=== PATIENT | female | born 1955 | race Caucasian/White ===

== ENCOUNTER → 2022-08-02 | Outpatient (CLI) | payer MEDICARE ==
--- NOTE | 2022-08-02 12:20 | CT ---
EXAMINATION TYPE: CT right knee - [facility] Protocol DATE OF EXAM: 08/02/2022 COMPARISON: None HISTORY: Presurgical planning- Right knee [facility] CT DLP: 835 mGycm TECHNIQUE- CT of the right knee was performed. FINDINGS- Limited preprocedural planning imaging was performed. There is concentric narrowing of the hip joint with hypertrophic change of the acetabulum. Findings c ompatible with arthropathy. Correlate for femoral acetabular impingement. Spurring along the greater trochanter can occasionally be associated with trochanteric bursitis. There is hypertrophic change of the patella and the medial and lateral compartment of the knee joint with severe narrowing of the joint spaces. No erosive changes. Cystic changes seen involving the medi al distal femur likely in the basis of geode. Spurring along the intercondylar notch noted. Ankle mortise appears preserved. Spurring anteriorly of the distal tibia noted and there are calcanea l spurs. IMPRESSION- 1.. Severe osteoarthritis of the right knee. 2. Arthropathy of the hip correlate for femoral acetabular impingement.
== END | disposition home or self-care (01) ==
LOC: RADCTMAIN 10:42
PROVIDERS: ATTEND Orthopaedic Surgery
DX: M17.11 Unilateral primary osteoarthritis, right knee (principal); M17.12 Unilateral primary osteoarthritis, left knee; E11.9 Type 2 diabetes mellitus without complications; Z68.42 Body mass index [BMI] 45.0-49.9, adult

== ENCOUNTER → 2024-07-17 | Outpatient (CLI) | payer MEDICARE ==
--- NOTE | 2024-07-17 15:20 | CT ---
CT left knee, [facility] protocol. HISTORY: Knee pain COMPARISON: None TECHNIQUE: Multiple axial images are obtained through the lower extremities without use of IV contras t material. The exam was performed according to the [facility] protocol FINDINGS: There is severe narrowing, marked hypertrophic spurring and mild subchondral sclerosis in the medial compartment knee consistent with moderate osteoarthritis. There is mild narrowing of the lateral comp artment of the knee with moderate hypertrophic spurring at the margins. There is moderate narrowing a nd hypertrophic spurring of the patellofemoral compartment. There is no acute fracture, dislocation or focal intraosseous abnormality. The hips are normal and symmetric bilaterally without fracture, dislocation or arthritic change. The ankles are normal and symmetrical without osteoarthritic change, fracture, dislocation or focal i ntraosseous abnormality. IMPRESSION: 1. Tricompartment osteoarthritis, severe in the medial compartment, mild in the lateral compartment a nd moderate patellofemoral compartment. 2. No significant arthritis in the hips or ankles bilaterally. 3. Total right knee replacement 4. no acute trauma. [facility], , 07/17/2024 3:18 PM
== END | disposition home or self-care (01) ==
LOC: RADCTMAIN 12:49
PROVIDERS: ATTEND Orthopaedic Surgery
DX: M17.12 Unilateral primary osteoarthritis, left knee (principal); E11.9 Type 2 diabetes mellitus without complications; Z68.41 Body mass index [BMI] 40.0-44.9, adult; Z96.651 Presence of right artificial knee joint

== ENCOUNTER 2024-08-23 10:23 | Day surgery (SDC) | payer MEDICARE ==
[~2024-08-23 10:23] MED LIST: FAMOTIDINE 20 MG/2 ML VIAL IVP PRN; TRANEXAMIC 1,000 MG/100ML-NACL 1,000 MG in SALINE 1 100ML.BAG IV PRN; TRANEXAMIC 1,000 MG/100ML-NACL 1,000 MG in SALINE 1 100ML.BAG IVPB PRN
[2024-08-23] MEDS: IV FLUID CONTINUATION 1,000 ML IV ONE ×2 (10:47→15:49)
[2024-08-23] MEDS: DOCUSATE 100 MG CAP PO PRN (11:16)
[2024-08-23] MEDS: oxyCODONE ER 10 MG TAB.ER.12H PO PRN (11:17)
[2024-08-23] MEDS: DEXAMETHASONE SOD PHOSPHATE 10 MG/ML 1 ML VIAL IV PRN (11:17)
[2024-08-23] MEDS: KETOROLAC 15 MG/ML 1 ML VIAL IVP PRN (11:17)
[2024-08-23] MEDS: ACETAMINOPHEN TAB 500 MG TAB PO PRN (11:17)
[2024-08-23] MEDS: ONDANSETRON 4 MG/2 ML VIAL IVP PRN (11:17)
[2024-08-23] MEDS: LACTATED RINGERS 1,000 ML IV SCH (11:18)
[2024-08-23 11:25] LABS: Glucose,Whole Blood 221 mg/dL (70-110)
[2024-08-23] MEDS: MIDAZOLAM 2 MG/2 ML VIAL IV ONE (11:38)
--- NOTE | 2024-08-23 11:57 | P.ANPRN ---
Procedure Note - Anesthesia - Nerve Block Performed Left Malcolmck Single Time Out Performed: Yes Date of Procedure: 08/23/24 Procedure Start Time: 11:38 Procedure Stop Time: 11:43 Location of Patient: PreOp Indication: Acute Post-Operative Pain, Analgesia, Requested by Surgeon Sedation Type: Sedate with meaningful contact maintained Preparation: Sterile Prep Position: Right Lateral Catheter: None Needle Types: Pajunk Needle Gauge: 21 Ultrasound used to visualize needle placement: Yes Ultrasound used to observe medication spread: Yes Injectate: 0.5% Ropivacaine (see comment for volume) (Ropiv 20ml+[id number]) Blood Aspirated: No Pain Paresthesia on Injection Noted: No Resistance on Injection: Normal Image Stored and Saved: Yes Events: Uneventful and Well Tolerated
--- NOTE | 2024-08-23 11:58 | P.ANPRN ---
Procedure Note - Anesthesia - Nerve Block Performed Left Adductor Canal Single Time Out Performed: Yes Date of Procedure: 08/23/24 Procedure Start Time: 11:43 Procedure Stop Time: 11:48 Location of Patient: PreOp Indication: Acute Post-Operative Pain, Analgesia, Requested by Surgeon Sedation Type: Sedate with meaningful contact maintained Preparation: Sterile Prep Position: Supine Catheter: None Needle Types: Pajunk Needle Gauge: 21 Ultrasound used to visualize needle placement: Yes Ultrasound used to observe medication spread: Yes Injectate: 0.5% Ropivacaine (see comment for volume) (Ropiv 20ml+Decadron 4mg (Resident)) Blood Aspirated: No Pain Paresthesia on Injection Noted: No Resistance on Injection: Normal Image Stored and Saved: Yes Events: Uneventful and Well Tolerated
[2024-08-23] MEDS ORDERED: SUCCINYLCHOLINE CHLORIDE 200 MG/10 ML VIAL IV ONE (12:33)
[2024-08-23] MEDS ORDERED: TRANEXAMIC 1,000 MG/100ML-NACL PREMIX BAG ONE (12:33)
[2024-08-23] MEDS ORDERED: LIDOCAINE 1% INJ 10MG/ML (20 ML MDV) ONE (12:33)
[2024-08-23] MEDS ORDERED: NEOSTIGMINE 1 MG/ML 10 ML VIAL ONE (12:33)
[2024-08-23] MEDS ORDERED: PHENYLEPHRINE-0.9% NACL SYG 1,000 MCG/10 ML SYRINGE ONE (12:33)
[2024-08-23] MEDS ORDERED: ROPIVACAINE 5 MG/ML 30 ML VIAL ONE (12:33)
[2024-08-23] MEDS ORDERED: PROPOFOL 10 MG/ML 20 ML VIAL IV ONE (12:33)
[2024-08-23] MEDS ORDERED: ROCURONIUM 10 MG/ML (5 ML VIAL) IV ONE (12:33)
[2024-08-23] MEDS ORDERED: HYDROmorphone (PF) 1 MG/ML ONE (12:33)
[2024-08-23] MEDS ORDERED: GLYCOPYRROLATE 0.2 MG/ML 2 ML VIAL ONE (12:33)
[2024-08-23] MEDS ORDERED: MIDAZOLAM 2 MG/2 ML VIAL ONE (12:33)
[2024-08-23] MEDS ORDERED: DEXAMETHASONE SOD PHOSPHATE 4 MG/ML 1 ML VIAL ONE (12:33)
[2024-08-23] MEDS ORDERED: fentaNYL (PF) 50 MCG/ML 2 ML AMP ONE (12:33)
[2024-08-23] MEDS: ROPIVACAINE/EPI/CLONIDINE/KET 50 ML SYRINGE MISCELLANE PRN (13:00)
[2024-08-23] MEDS: LACTATED RINGERS 1,000 ML IV ONE (13:42)
--- NOTE | 2024-08-23 14:33 | P.OP ---
Date of Procedure: 08/23/24 Preoperative Diagnosis: 1. Severe left knee osteoarthritis 2. BMI 44.9 Postoperative Diagnosis: Same Procedure(s) Performed: 1. Left total knee arthroplasty 2. Computer assisted musculoskeletal navigation using CT/MRI images 3. Application of negative pressure incisional wound VAC, less than 50 cm left knee, incision 15 cm Implants: 1. [place] [employer] CR Femur Size #2 2. [employer] [employer] [place] Tibial Base Size #2 3. [place] [employer] CS poly Size #2, 10-mm 4. Bin Triathlon all poly patella, Size #29 Anesthesia: ZOHRAA, regional Surgeon: Rafat Mac Sand Technician #1: Jacob Valdes Estimated Blood Loss (ml): 200 IV fluids (ml): 800 Pathology: none sent Condition: stable Disposition: PACU Indications for Procedure: I met with the patient preoperatively in the office setting and discussed treatment of their symptomatic knee arthritis. They failed a long course of nonsurgical treatment and elected to proceed with an elective total knee replacement. I discussed the potential risks and complications at length and gave them ample time to ask questions. Risks discussed included: risks from anesthesia, superficial site surgical infection, acute and/or chronic periprosthetic joint infection, delayed wound healing, drainage, wound necrosis, instability, stiffness, stiffness requiring manipulation and/or revision surgery, damage to local blood vessels or nerves, aseptic loosening of the implants, extensor mechanism issues including disruption, patellar maltracking, avascular necrosis etc., continued or worsened knee pain, generalized dissatisfaction with surgical outcome, need for revision surgery, an inability to regain preinjury level of function, DVT, PE, other medical complications, and possibly loss of life or limb. The patient voiced their understanding that while these are the most common complications other less common complications are possible. They provided both their verbal and written consent to go forward with surgery. Description of Procedure: The patient was identified in preoperative holding and the correct operative extremity was verified and marked with a marker. I reviewed the consent form with the patient at length. All of their questions were answered. The patient was given a block by anesthesia. They were then brought back to the operating room. They were transferred onto the operating room table where a general anesthetic, preoperative antibiotics, and tranexamic acid were administered by anesthesia. A tourniquet was applied to the proximal aspect of the operative extremity. The contralateral extremity was padded under the heel and secured to the operating room table with a nonsterile blue towel and tape. The ipsilateral arm was carefully draped across the patient's chest and secured with a pillow and foam. A post was applied over the lateral aspect of the ipsilateral thigh and a bolster was placed under the ipsilateral foot. I verified that the operative extremity was stable and the knee was flexed to 90. The operative extremity was then placed in a leg andrea, nonsterile drapes were applied, and the extremity was prepped and draped sterilely in the standard sterile fashion. Prior to starting surgery timeout was performed identifying the correct patient, operative extremity, and procedure. The leg was then elevated, exsanguinated with an Esmarch bandage, and the tourniquet was inflated. An anterior midline incision was made sharply with a scalpel. Once I had dissected deep to the superficial fascial layer medial and lateral flaps were elevated. A medial parapatellar arthrotomy was created. Upon opening the knee joint there were diffuse arthritic changes in all 3 compartments. The anterior horn of the medial meniscus were sharply released and a medial release was performed around the posterior medial corner of the knee to facilitate retractor placement. The fat pad was excised with electrocautery. The patella was found to be severely arthritic and a provisional cut was made with a sagittal saw to facilitate mobilization of the extensor mechanism during the procedure. Remnants of the ACL and PCL were then excised from the notch. 4 mm pins were then placed within the incision in the medial distal femur and proximal tibia. Arrays were applied to the pins and I verified they were completely tightened. The knee was then registered with the [employer] robot and manipulations in implant position were made to balance the knee and opitmize implant position. Using the [employer] robotic saw all cuts were made in accordance with our plan. After all bony fragments had been removed the cuts were verified with the planar probe. The tibia was then subluxed forward and sized. The knee was brought into flexion and a lamina marine safety officer was placed to allow removal of the meniscal remnants both medially and laterally as well as posterior osteophytes. Local anesthetic was then infiltrated around the joint capsule. Trial implants were then placed within the knee. Range of motion and collateral ligament tension was then evaluated. Adjustments in implant size and position were then made accordingly. Once the knee was felt to be appropriately balanced the Harley pins were removed. The patella was then recut, sized, and punched. A trial patellar button was then placed. With the trial components in place, the patella tracked midline. The femur was then drilled and the trial component removed. The trial tibial component was then appropriately rotated, pinned, and prepared for the keel. All trial components were then removed from the knee. The knee was thoroughly irrigated with pulsatile lavage. Cement was prepared via vacuum mixing in a bowl on the back table. I then hand pressurized cement into the femur and tibia and placed the implants beginning with the tibial base tray and poly liner, femoral component, and finally the patellar button. All extruded cement was removed including from the pin sites. Once the cement had hardened the knee was evaluated one final time with the final polyethylene liner in place. The knee had full extension and flexion and felt stable to varus and valgus stress throughout the arc of motion. The tourniquet was released and with the tourniquet down the patella tracked midline. All bleeders were controlled with electrocautery. The knee was then soaked for 3 minutes with a dilute Betadine soak. The knee was thoroughly irrigated using 3 L of sterile saline and pulsatile lavage. A deep drain was placed. The extensor mechanism was then reapproximated using pop off Vicryl sutures followed by a running barbed suture. The knee was then closed in layers with a 0 strata fix for the deep fascial layer, 2-0 strata fix for the superficial subcutaneous layer and Monocryl for the skin. Due to the patient's body habitus and incisional wound VAC was placed over the closed incision. I verified that all instrument, sponge, and sharp counts were correct. The patient was then transferred off the operating room table, extubated, and brought to recovery having tolerated the procedure well. Jacob Valdes PA-C was required as a skilled assistant designer due to the complexity of surgery for patient positioning, draping, exposure, retraction, closure of wound and application of dressing. PLAN: The patient can weight-bear as tolerated on the operative extremity. DVT prophylaxis with aspirin 81 mg twice a day based on preoperative risk stratification. Follow-up in the office in 2 weeks for wound check and x-rays of the knee including an AP and lateral.
[2024-08-23] MEDS ORDERED: NALOXONE 0.4 MG/ML 1 ML VIAL IV PRN (14:35)
[2024-08-23] MEDS ORDERED: diazePAM 5 MG TAB PO PRN (14:35)
[2024-08-23] MEDS ORDERED: HYDROmorphone 0.5 MG/0.5 ML SYRINGE IVP PRN ×3 (14:35)
[2024-08-23] MEDS ORDERED: TEMAZEPAM 15 MG CAP PO PRN (14:35)
[2024-08-23] MEDS ORDERED: ONDANSETRON 4 MG/2 ML VIAL IVP PRN (14:35)
[2024-08-23] MEDS ORDERED: NA PHOS,M-B/NA PHOS,DI-BA 133 ML ENEMA RECTAL PRN (14:35)
[2024-08-23] MEDS ORDERED: MAGNESIUM HYDROXIDE 2,400 MG/30 ML CUP PO PRN (14:35)
[2024-08-23] MEDS ORDERED: HYDROcodone/APAP 5-325MG 1 EACH TAB PO PRN (14:35)
[2024-08-23] MEDS ORDERED: bisacodyL 10 MG SUPP RECTAL PRN (14:35)
[2024-08-23] MEDS ORDERED: hydrOXYzine pamoate 25 MG CAP PO PRN (14:35)
[2024-08-23 15:17] LABS: Glucose,Whole Blood 242 mg/dL (70-110)
[2024-08-23] MEDS: INSULIN LISPRO (HumaLOG) 100 UNIT/ML 10 mL VL SQ ONE ×2 (15:30→16:49)
--- NOTE | 2024-08-23 15:36 | XR ---
EXAMINATION TYPE: XR knee limited LT DATE OF EXAM: 08/23/2024 3:33 PM INDICATION: Patient age:Female; 68 years old; Reason for study: Evaluation for Postop abnormality and alignment; H. COMPARISON: CT left knee 07/17/2024 TECHNIQUE: The Left knee(s) was examined in frontal and lateral projections. FINDINGS: Status post total knee arthroplasty changes with hardware in appropriate alignment and in tact. No evidence of fracture. Subcutaneous lucencies and lucencies within the joint consistent with surgical changes. IMPRESSION: Status post total knee arthroplasty changes with hardware intact and appropriate alignment. No fractu res identified. [facility], , 08/23/2024 3:34 PM
[2024-08-23 16:54] LABS: Glucose,Whole Blood 270 mg/dL (70-110)
[2024-08-23] MEDS ORDERED: PANTOPRAZOLE 40 MG TABLET PO PRN (17:03)
[2024-08-23] MEDS ORDERED: DEXTROSE 50% SYRINGE 50 ML IVP PRN ×4 (17:04→17:29)
[2024-08-23] MEDS: SODIUM CHLORIDE 0.9% 1,000 ML IV SCH (17:05)
[2024-08-23] MEDS: INSULIN LISPRO (HumaLOG) 100 UNIT/ML 10 mL VL SQ SCH (17:53)
--- NOTE | 2024-08-23 19:04 | P.CONS ---
History of Present Illness - Reason for Consult Consult date: 08/23/24 Medical Management Requesting physician: Rafat Mac - History of Present Illness History of Presenting Illness: Patient is a pleasant 67-year-old female with a past medical history of hypertension, hyperlipidemia, nae-[id number]-kvpscansd type 2 diabetes mellitus, and osteoarthritis. She is currently admitted under orthopedic surgery team status post left total knee arthroplasty with application of negative pressure incisional wound VAC. Surgical procedure was completed by Dr. Mac. We were consulted for medical management throughout hospitalization. Patient seen and fully evaluated in room 465 shortly after returning from surgery. At this time patient was sitting up in the chair and reports doing great. Patient has been ambulatory to restroom with assistance from nursing staff and use of walker without difficulties. She reports urinating without any difficulties. She denies having any postoperative nausea or vomiting and tolerating oral intake. Patient denies any dizziness, lightheadedness, chest pain, palpitations, shortness of breath, or any other complaints at this time. She reports her postoperative pain is well-managed. Review of systems: Pertinent positives and negatives as discussed in HPI, a complete review of systems was performed and all other systems are negative. Physical exam: Vital signs reviewed and stable. General: Nontoxic, no distress and appears stated age. Derm: Skin warm and dry, normal coloration for ethnicity. Head: Atraumatic, normocephalic and symmetric. Eyes: EOM's intact, no lid lag, and anicteric sclera Mouth: no lip lesions, mucus membranes moist Cardiovascular: regular rate and rhythm with normal S1S2, no murmur, positive posterior tibial pulses bilaterally, and cap refill < 2 seconds. Lungs: Respirations even, regular, and unlabored on room air. Lungs CTA bilaterally, no rhonchi, no rales, no wheezing, and no accessory muscle usage. Abdominal: soft, nontender to palpation, no guarding, no appreciable organomegaly Ext:. Movement and sensation intact. No gross muscle atrophy, no edema, no contractures wound VAC in place left knee. Neuro: Speech clear, face symmetrical and CN II-XII grossly intact with no noted focal neuro deficits Psych: Alert and oriented to person, place, time, and situation. Appropriate and pleasant affect. Assessment and Plan of Care: Status post left total knee arthroplasty with application of negative pressure incisional wound VAC -Management per primary admitting orthopedic surgery team including DVT prophylaxis, pain management, wound/dressing/wound VAC management, weightbearing, and PT/OT. -Patient currently on DVT prophylaxis with aspirin 81 mg twice daily. Type 2 twx-hrfnqej-ncgfhfryx diabetes mellitus with hyperglycemia -Hold metformin and Ozempic and placed patient on glycemic protocol with NovoLog sliding scale to maintain tight glycemic control throughout hospitalization. Blood glucose currently 270. Hyperlipidemia -Continue rosuvastatin 5 mg nightly. Data and imaging reviewed: -Blood glucose currently 270, has been trending in the 200s since arrival to our facility resulting at 221, 242, and 270. Patient placed on glycemic protocol with NovoLog sliding scale. -Vital signs reviewed. Blood pressure 145/74, heart rate 104, respiratory rate 16, temp 98.3 F, and SpO2 of 94% on room air. Thank you for allowing us to participate in the care of this pleasant patient. Do not hesitate to contact us with questions. Someone can be reached from the [facility] all hours of the day at [phone] or via [employer]. Patient was seen independently by Nurse Practitioner. This document was prepared using [employer] dictation software. Please allow for errors in bottle machine operator while rare they do occur. Kulwant Mon NP rendered care for this patient independently, reviewed the findings and plan as documented in the note above and agree with plan. I did not physically speak with or examine the patient on this date. Past Medical History Past Medical History: Diabetes Mellitus, Hypertension, Osteoarthritis (OA) Additional Past Medical History / Comment(s): hx. heart murmur, urinary frequency, occasional incontinence, kidney stones, no longer needs BP med., after last knee replacement surg. ended up w/red rash all over 3-4 days after got home that eventually peeled, unsure of cause History of Any Multi-Drug Resistant Organisms: None Reported Past Surgical History: Bariatric Surgery, Cholecystectomy, Joint Replacement, Tubal Ligation Additional Past Surgical History / Comment(s): cyst removed from ovary, oophorectomy, lithotripsies, lap band 2009, right knee replacement 09/02/2022 Past Anesthesia/Blood Transfusion Reactions: No Reported Reaction Additional Past Anesthesia/Blood Transfusion Reaction / Comm: pt. adopted, unknown family hx., difficult IV start Smoking Status: Former smoker - Past Family History Daughter(s) Family Medical History: No Reported History Medications and Allergies Home Medications Medication Instructions Recorded Confirmed Type Cyanocobalamin [Vitamin B-12] 1,000 mcg PO DAILY 06/03/16 08/23/24 History metFORMIN HCL [Glucophage] 500 mg PO BID 06/03/16 08/23/24 History Aspirin 81 mg PO DAILY 08/29/22 08/23/24 History Cholecalciferol [Vitamin D3 (25 25 mcg PO DAILY 08/29/22 08/23/24 History Mcg = 1000 Iu)] Cranberry Fruit Concentrate [Azo 200 mg PO DAILY 08/29/22 08/23/24 History Cranberry] Rosuvastatin Calcium 5 mg PO HS 08/29/22 08/23/24 History Semaglutide [Ozempic] 1 mg SQ WE 08/29/22 08/23/24 History Omeprazole 20 mg PO DAILY PRN 08/20/24 08/23/24 History PARoxetine HCL [Paxil] 40 mg PO HS 08/20/24 08/23/24 History Acetaminophen [Tylenol Extra 500 mg PO DIRECTED PRN 08/21/24 08/23/24 History Strength] Diclofenac Sodium [Voltaren 2 gm TOPICAL DIRECTED PRN 08/21/24 08/23/24 History Arthritis Pain 1% Gel] Mupirocin 2% Oint [Bactroban 2% 1 applic NASAL BID 08/21/24 08/23/24 History Oint] Allergies Allergy/AdvReac Type Severity Reaction Status Date / Time sulfamethoxazole Allergy Rash/Hives Verified 08/23/24 10:48 [From Bactrim] trimethoprim [From Bactrim] Allergy Rash/Hives Verified 08/23/24 10:48 adhesive AdvReac if left on Verified 08/23/24 10:48 too long irritates skin Physical Exam Vitals: Vital Signs Temp Pulse Pulse Resp BP BP Pulse Ox 08/23/24 17:04 98.1 F 71 18 133/73 95 08/23/24 16:50 98.3 F 104 H 16 145/74 94 L 08/23/24 16:00 108 H 16 138/60 97 08/23/24 15:45 111 H 17 143/62 96 08/23/24 15:30 116 H 16 155/74 97 08/23/24 15:15 118 H 16 143/73 97 08/23/24 15:03 98.3 F 120 H 16 148/73 96 08/23/24 11:53 81 16 126/84 99 08/23/24 11:00 98 F 93 16 140/87 97 Intake and Output 08/23/24 08/23/24 08/23/24 06:59 14:59 22:59 Intake Total 1650 375 Output Total 200 Balance 1450 375 Intake: IV 1650 375 Output: Estimated Blood Loss 200 Other: Weight 104.2 kg Results Labs: Abnormal Lab Results - Last 24 Hours (Table) 08/23/24 08/23/24 08/23/24 Range/Units 11:13 15:15 16:52 POC Glucose (mg/dL) 221 H 242 H 270 H (70-110) mg/dL
[2024-08-23 20:37] LABS: Glucose,Whole Blood 338 mg/dL (70-110)
[2024-08-23] MEDS: ASPIRIN 81 MG PO SCH (21:18)
[2024-08-23] MEDS: ATORVASTATIN 10 MG TAB PO SCH (21:18)
[2024-08-23] MEDS: PARoxetine 20 MG TAB PO SCH (21:18)
[2024-08-23] MEDS: SENNOSIDES-DOCUSATE SODIUM 1 EACH TAB PO SCH (21:18)
[2024-08-24] MEDS: HYDROcodone/APAP 10-325MG 1 EACH TAB PO PRN (00:42)
[2024-08-24 06:07] LABS: Glucose,Whole Blood 238 mg/dL (70-110)
--- NOTE | 2024-08-24 08:14 | P.PN ---
Subjective Progress Note Date: 08/24/24 Patient is doing well this morning. She has some discomfort in her left knee but otherwise doing well. She has been up several times to the bathroom. Objective - Vital Signs Vital signs: Vital Signs Temp 97.5 F L 08/24/24 00:24 Pulse 78 08/24/24 00:24 Resp 19 08/24/24 00:24 BP 132/67 08/24/24 00:24 Pulse Ox 96 08/24/24 00:24 FiO2 Intake & Output 08/23/24 08/24/24 08/24/24 18:59 06:59 18:59 Intake Total 2024 Output Total 200 Balance 1825 Weight 104.2 kg Intake: IV 2024 Output: Estimated Blood Loss 200 Other: # Voids 1 2 - Exam Patient is sitting up at bedside. She is alert and able to answer questions. She is in no obvious distress. A focused exam of the operative knee was conducted. There is an incisional wound VAC over the incision with good seal. There is some bruising and mild swelling but the thigh and calf are soft and compressible. She is able to perform a straight leg raise and extend the knee. She is able to actively plantarflex and dorsiflex ankles and toes. The foot is warm and well-perfused - Labs Labs: Abnormal Lab Results - Last 24 Hours (Table) 08/23/24 08/23/24 08/23/24 Range/Units 11:13 15:15 16:52 POC Glucose (mg/dL) 221 H 242 H 270 H (70-110) mg/dL 08/23/24 08/24/24 Range/Units 20:36 06:05 POC Glucose (mg/dL) 338 H 238 H (70-110) mg/dL Assessment and Plan Assessment: Postop day #1 status post total knee replacement, doing well BMI 44.9 Type 2 diabetes (pre-operative hemoglobin A1c 5.8 on 08/15/2024) Plan: 1. Weightbearing as tolerated on the operative extremity. Up with assistance and a walker. 2. DVT prophylaxis with aspirin 81 mg twice a day 3. Physical therapy for gait training and mobilization 4. Leave surgical dressing in place. 5. Internal medicine for perioperative medical management 6. Disposition: Plan for discharge home today when pain is controlled, patient has passed physical therapy, and cleared by internal medicine. If the patient needs an additional day in the hospital for blood sugar control her pain we will keep her until tomorrow..
--- NOTE | 2024-08-24 08:15 | P.DS ---
Providers Date of admission: 08/23/2024 Attending physician: Rafta Mac Consults: 08/23/24 14:35 Consult Physician Routine Consulting Provider: Fran Keys Consult Reason/Comments: post op medical managemetn Do you want consulting provider notified?: Yes Primary care physician: [facility] Hospital Course: The patient is a very pleasant 68-year-old female who was admitted under my care yesterday after an uncomplicated total knee replacement. She was given 2 doses of postoperative antibiotics. She will be given doxycycline for 2 weeks to help lower her risk of perioperative wound issues and infection given her body habitus. She was started on aspirin for DVT prophylaxis. Internal medicine helped with her perioperative medical management. I saw the patient on postope rative day #1 and she was doing well. She worked with physical therapy. She was ultimately cleared for discharge home. Patient Condition at Discharge: Good Plan - Discharge Summary Discharge Rx Participant: No New Discharge Prescriptions: New Aspirin 81 mg PO BID #60 tab Docusate [Colace] 100 mg PO BID #60 capsule Diclofenac Sodium [Voltaren] 75 mg PO BID #60 tab Omeprazole [PriLOSEC] 40 mg PO DAILY #30 cap Doxycycline Monohydrate [Monodox] 100 mg PO BID #30 cap HYDROcodone/APAP 5-325MG [[place] 5-325] 1 - 2 tab PO Q6HR PRN #56 tab PRN Reason: Pain No Action metFORMIN HCL [Glucophage] 500 mg PO BID Cyanocobalamin [Vitamin B-12] 1,000 mcg PO DAILY Cholecalciferol [Vitamin D3 (25 Mcg = 1000 Iu)] 25 mcg PO DAILY Semaglutide [Ozempic] 1 mg SQ WE Omeprazole 20 mg PO DAILY PRN PRN Reason: Gi Upset Mupirocin 2% Oint [Bactroban 2% Oint] 1 applic NASAL BID Diclofenac Sodium [Voltaren Arthritis Pain 1% Gel] 2 gm TOPICAL DIRECTED PRN PRN Reason: Pain Acetaminophen [Tylenol Extra Strength] 500 mg PO DIRECTED PRN PRN Reason: Pain Rosuvastatin Calcium 5 mg PO HS Cranberry Fruit Concentrate [Azo Cranberry] 200 mg PO DAILY Aspirin 81 mg PO DAILY PARoxetine HCL [Paxil] 40 mg PO HS Discharge Medication List Cyanocobalamin [Vitamin B-12] 1,000 mcg PO DAILY 06/03/16 [History] metFORMIN HCL [Glucophage] 500 mg PO BID 06/03/16 [History] Aspirin 81 mg PO DAILY 08/29/22 [History] Cholecalciferol [Vitamin D3 (25 Mcg = 1000 Iu)] 25 mcg PO DAILY 08/29/22 [History] Cranberry Fruit Concentrate [Azo Cranberry] 200 mg PO DAILY 08/29/22 [History] Rosuvastatin Calcium 5 mg PO HS 08/29/22 [History] Semaglutide [Ozempic] 1 mg SQ WE 08/29/22 [History] Omeprazole 20 mg PO DAILY PRN 08/20/24 [History] PARoxetine HCL [Paxil] 40 mg PO HS 08/20/24 [History] Acetaminophen [Tylenol Extra Strength] 500 mg PO DIRECTED PRN 08/21/24 [History] Diclofenac Sodium [Voltaren Arthritis Pain 1% Gel] 2 gm TOPICAL DIRECTED PRN 08/21/24 [History] Mupirocin 2% Oint [Bactroban 2% Oint] 1 applic NASAL BID 08/21/24 [History] Aspirin 81 mg PO BID #60 tab 08/24/24 [Rx] Diclofenac Sodium [Voltaren] 75 mg PO BID #60 tab 08/24/24 [Rx] Docusate [Colace] 100 mg PO BID #60 capsule 08/24/24 [Rx] Doxycycline Monohydrate [Monodox] 100 mg PO BID #30 cap 08/24/24 [Rx] HYDROcodone/APAP 5-325MG [[place] 5-325] 1 - 2 tab PO Q6HR PRN #56 tab 08/24/24 [Rx] Omeprazole [PriLOSEC] 40 mg PO DAILY #30 cap 08/24/24 [Rx] Follow up Appointment(s)/Referral(s): Rafat Mac MD [Medical Doctor] - 2 Weeks Activity/Diet/Wound Care/Special Instructions: 1. Weight-bear as tolerated on your operative extremity unless instructed otherwise. Use a walker or other assistive device to ambulate. 2. Leave surgical dressing in place. If your dressing becomes saturated with blood, there is drainage, or the dressing becomes loose please contact the office. 3. It is okay to shower with your surgical dressing, but do not submerge in water (no hot tubs, bath's, swimming etc.) 4. Make sure to take her blood clot prevention medication as prescribed (aspirin, Eliquis, Xarelto, and Plavix are commonly prescribed medications for blood clot prevention) 5. While taking [place] or Percocet for pain make sure you're taking a stool softener (Colace) and drink lots of water. 6. Keep all follow-up appointments as scheduled. You will usually be seen in 1-2 weeks following surgery. 7. Please contact the office with any questions or concerns [phone] Discharge Disposition: HOME WITH HOME HEALTH SERVICES
[2024-08-24 09:03] VITALS: BP 98/54; PULSE 76; RESP 16; TEMP 98
[2024-08-24 09:58] LABS: Basophils # (A) 0.01 X 10*3/uL (0.00-0.10); Basophils % (A) 0.1 %; Eosinophils # (A) 0 X 10*3/uL (0.04-0.35); Eosinophils % (A) 0 %; HCT 29.8 % (37.2-46.3); HGB 9.5 g/dL (12.0-15.0); Lymphocytes # (A) 0.46 X 10*3/uL (0.90-5.00); Lymphocytes % (A) 5.3 %; MCH 31.1 pg (27.0-32.0); MCHC 31.9 g/dL (32.0-37.0); MCV 97.7 FL (80.0-97.0); Mean Platelet Volume 10.1 FL (9.5-12.2); Monocytes # (A) 0.47 X 10*3/uL (0.20-1.00); Monocytes % (A) 5.4 %; NRBC Per 100 WBC 0 X 10*3/uL (0.00-0.01); Neutrophils # (A) 7.76 X 10*3/uL (1.80-7.70); Neutrophils % (A) 88.9 %; Platelet Count 92 X 10*3/uL (140-440); RBC 3.05 X 10*6/uL (4.10-5.20); RDW 13.2 % (11.5-14.5); WBC 8.73 X 10*3/uL (4.50-10.00)
[2024-08-24 10:13] LABS: Blood Urea Nitrogen 19.1 mg/dL (9.0-27.0); Calcium 8.4 mg/dL (8.7-10.3); Carbon Dioxide 23.6 mmol/L (21.6-31.8); Chloride 104 mmol/L (96-109); Glucose 232 mg/dL (70-110); Magnesium 1.5 mg/dL (1.5-2.4); Potassium 4.4 mmol/L (3.5-5.5); Sodium 137 mmol/L (135-145)
[2024-08-24] MEDS: MAGNESIUM OXIDE 400 MG TAB PO STA (11:48)
--- NOTE | 2024-08-24 17:29 | P.PN ---
Subjective Progress Note Date: 08/24/24 Hospital course:: Patient is a pleasant 67-year-old female with a past medical history of hypertension, hyperlipidemia, [id number] type 2 diabetes mellitus, and osteoarthritis. She is currently admitted under orthopedic surgery team status post left total knee arthroplasty with application of negative pressure incisional wound VAC. Surgical procedure was completed by Dr. Mac. We were consulted for medical management throughout hospitalization. Physical exam: Seen and fully evaluated at bedside this morning. She was resting comfortably in chair. She reports mild postoperative pain to left knee but otherwise denies any complaints. Patient has been ambulating in room to and from restroom with use of walker and nursing assistance. She is awaiting to be evaluated by physical therapy. Vital signs reviewed and stable. General: Nontoxic, no distress and appears stated age. Derm: Skin warm and dry, normal coloration for ethnicity. Head: Atraumatic, normocephalic and symmetric. Eyes: EOM's intact, no lid lag, and anicteric sclera Mouth: no lip lesions, mucus membranes moist Cardiovascular: regular rate and rhythm with normal S1S2, no murmur, positive posterior tibial pulses bilaterally, and cap refill < 2 seconds. Lungs: Respirations even, regular, and unlabored on room air. Lungs CTA bilaterally, no rhonchi, no rales, no wheezing, and no accessory muscle usage. Abdominal: soft, nontender to palpation, no guarding, no appreciable organome deion Ext:. Movement and sensation intact. No gross muscle atrophy, no edema, no contractures wound VAC in place left knee. Neuro: Speech clear, face symmetrical and CN II-XII grossly intact with no noted focal neuro deficits Psych: Alert and oriented to person, place, time, and situation. Appropriate and pleasant affect. Assessment and Plan of Care: Status post left total knee arthroplasty with application of negative pressure incisional wound VAC -Management per primary admitting orthopedic surgery team including DVT prophylaxis, pain management, wound/dressing/wound VAC management, weig htbearing, and PT/OT. -Patient currently on DVT prophylaxis with aspirin 81 mg twice daily. Type 2 wye-[id number] diabetes mellitus with hyperglycemia -Hold metformin and Ozempic and placed patient on glycemic protocol with NovoLog sliding scale to maintain tight glycemic control throughout hospitalization. Blood glucose currently 270. Hyperlipidemia -Continue rosuvastatin 5 mg nightly. Data and imaging reviewed: -Labs reviewed. CBC showing bicytopenia with hemoglobin of 9.5 and platelet count of 92. BMP unremarkable. Blood glucose 232. Hemoglobin A1c is 7.7%. Magnesium was low at 1.5. Orders placed for Mag-Ox 400 mg p.o. x 1 dose. -Vital signs reviewed. Blood pressure slightly low this morning at 98/54, heart rate 76, respiratory rate 16, temp 98.0 F, and SpO2 of 99% on room air. Thank you for allowing us to participate in the care of this pleasant patient. Do not hesitate to contact us with questions. Someone can be reached from [facility] all hours of the day at [phone] or via 51 Give. Patient was seen independently by Nurse Practitioner. This document was prepared using [email or web address] dictation software. Please allow for errors in crimping press operator while rare they do occur. Kulwant Mon NP rendered care for this patient independently, reviewed the findings and plan as documented in the note above and agree with plan. I did not physically speak with or examine the patient on this date. Objective - Vital Signs Vital signs: Vital Signs Temp 98.0 F 08/24/24 07:14 Pulse 76 08/24/24 07:14 Resp 16 08/24/24 07:14 BP 98/54 08/24/24 07:14 Pulse Ox 99 08/24/24 07:14 FiO2 Intake & Output 08/23/24 08/24/24 08/24/24 18:59 06:59 18:59 Intake Total 2024 Output Total 200 Balance 1825 Weight 104.2 kg Intake: IV 2024 Output: Estimated Blood Loss 200 Other: Voiding Method Toilet # Voids 1 2 - Labs CBC & Chem 7: 08/24/24 04:41 08/24/24 04:41 Labs: Abnormal Lab Results - Last 24 Hours (Table) 08/23/24 08/23/24 08/23/24 Range/Units 11:13 15:15 16:52 POC Glucose (mg/dL) 221 H 242 H 270 H (70-110) mg/dL 08/23/24 08/24/24 Range/Units 20:36 06:05 POC Glucose (mg/dL) 338 H 238 H (70-110) mg/dL
== END 2024-08-24 12:54 | disposition home health service (06) ==
LOC: OR 10:23 → 4SSUR 15:52 → OR 08-24 12:54
PROVIDERS: ATTEND Orthopaedic Surgery
DX: M17.12 Unilateral primary osteoarthritis, left knee (principal); G89.18 Other acute postprocedural pain; I10 Essential (primary) hypertension; E11.65 Type 2 diabetes mellitus with hyperglycemia; E78.5 Hyperlipidemia, unspecified; Z79.84 Long term (current) use of oral hypoglycemic drugs; Z79.899 Other long term (current) drug therapy; Z68.41 Body mass index [BMI] 40.0-44.9, adult; Z87.442 Personal history of urinary calculi; Z98.84 Bariatric surgery status; Z90.49 Acquired absence of other specified parts of digestive tract; Z98.51 Tubal ligation status; Z90.721 Acquired absence of ovaries, unilateral; Z87.891 Personal history of nicotine dependence; Z79.82 Long term (current) use of aspirin; Z88.2 Allergy status to sulfonamides; Z88.1 Allergy status to other antibiotic agents; Z88.8 Allergy status to other drugs, medicaments and biological substances
CPT/HCPCS: 0055T; 27447; 64447; 64999; 80048; 83036; 83735; 85025

== ENCOUNTER 2024-11-04 16:06 | Inpatient (IN) | payer MEDICARE ==
--- NOTE | 2024-11-04 16:32 | ED ---
Abdominal Pain HPI - General Chief Complaint: Abdominal Pain Stated Complaint: Back pain Time Seen by Provider: 11/04/24 16:32 Source: patient, family (daughter), RN notes reviewed Mode of arrival: ambulatory Limitations: no limitations - History of Present Illness Initial Comments: 69-year-old female the past medical history significant for type 2 diabetes and hypertension presented the ER for evaluation of bilateral flank pain. Patient also reports a history of kidney stones. She states since 10-30-2024 she has been experiencing bilateral flank pain. She was seen by PCP on and had outpatient CT scan completed showing multiple kidney stones. Patient states over Monday she had an increase in pain which was intolerable which presented her to [facility] emergency room for pain control. Patient was prescribed ciprofloxacin, [place] and Zofran for pain control. She states the pain has been mildly controlled since then but she is currently out of her medications. They did instruct her to follow-up with urology Monday morning which she did at 9 AM. She does report passing a stone prior to urology appointment. Per daughter, urologist stated stones needed to be "blasted" but this cannot be completed until 11-13-2024. Patient presents today as her pain is uncontrolled at this time. She denies any fevers or chills. Patient admits to nausea, vomiting, increase in urinary frequency and hematuria. She denies any diarrhea, peripheral edema, chest pain, shortness of breath. Patient also mentions a erythematous rash under bilateral breasts and groin region. She has been using diaper cream on the rash. Patient states it is mildly painful. No other complaints. - Related Data Home Medications Medication Instructions Recorded Confirmed metFORMIN HCL [Glucophage] 500 mg PO BID 06/03/16 08/23/24 Rosuvastatin Calcium 5 mg PO HS 08/29/22 08/23/24 Semaglutide [Ozempic] 1 mg SQ WE 08/29/22 08/23/24 PARoxetine HCL [Paxil] 40 mg PO HS 08/20/24 08/23/24 Aspirin EC [Ecotrin Low Dose] 81 mg PO DAILY 11/04/24 11/04/24 Cholecalciferol (Vitamin D3) 50 mcg PO DAILY 11/04/24 11/04/24 [Vitamin D3 (50 Mcg = 2000 Iu)] Ciprofloxacin HCl [Cipro] 500 mg PO Q12HR 11/04/24 11/04/24 Cranberry Fruit Extract [Cranberry] 500 mg PO DAILY 11/04/24 11/04/24 Cyanocobalamin (Vitamin B-12) 1,000 mcg PO DAILY 11/04/24 11/04/24 [Vitamin B-12] HYDROcodone/APAP 5-325MG [[place] 1 tab PO Q6HR PRN 11/04/24 11/04/24 5-325] Omeprazole [PriLOSEC] 40 mg PO DAILY PRN 11/04/24 11/04/24 Ondansetron Odt [Zofran Odt] 4 mg PO Q8HR PRN 11/04/24 11/04/24 Tamsulosin [Flomax] 0.4 mg PO DAILY 11/04/24 11/04/24 Allergies Allergy/AdvReac Type Severity Reaction Status Date / Time sulfamethoxazole Allergy Rash/Hives Verified 11/04/24 18:54 [From Bactrim] trimethoprim [From Bactrim] Allergy Rash/Hives Verified 11/04/24 18:54 adhesive AdvReac if left on Verified 11/04/24 18:54 too long irritates skin Review of Systems ROS Statement: Those systems with pertinent positive or pertinent negative responses have been documented in the HPI. ROS Other: All systems not noted in ROS Statement are negative. Past Medical History Past Medical History: Diabetes Mellitus, Hypertension Additional Past Medical History / Comment(s): hx. heart murmur, urinary freque ncy, occasional incontinence, kidney stones, no longer needs BP med., after last knee replacement surg. ended up w/red rash all over 3-4 days after got home that eventually peeled, unsure of cause History of Any Multi-Drug Resistant Organisms: None Reported Past Surgical History: Bariatric Surgery, Cholecystectomy, Orthopedic Surgery, Tubal Ligation Additional Past Surgical History / Comment(s): left knee Past Anesthesia/Blood Transfusion Reactions: No Reported Reaction Additional Past Anesthesia/Blood Transfusion Reaction / Comment(s): pt. adopted, unknown family hx. Past Psychological History: No Psychological Hx Reported Smoking Status: Former smoker - Past Family History Daughter(s) Family Medical History: No Reported History General Exam Limitations: no limitations General appearance: alert, in no apparent distress Respiratory exam: Present: normal lung sounds bilaterally. Absent: respiratory distress, wheezes, rales, rhonchi, stridor Cardiovascular Exam: Present: regular rate, normal rhythm, normal heart sounds. Absent: systolic murmur, diastolic murmur, rubs, gallop, clicks GI/Abdominal exam: Present: soft, tenderness (left sided), normal bowel sounds Extremities exam: Present: normal inspection, full ROM, normal capillary refill. Absent: tenderness, pedal edema, joint swelling, calf tenderness Back exam: Present: CVA tenderness (R), CVA tenderness (L) Neurological exam: Present: alert, oriented X3, CN II-XII intact Skin exam: Present: warm, dry, intact, normal color. Absent: rash Course Vital Signs 11/04/24 16:13 Temperature 98.2 F Pulse Rate 108 H Respiratory 17 Rate Blood Pressure 111/49 O2 Sat by Pulse 98 Oximetry - Reevaluation(s) Reevaluation #1: 11/04/24 18:17 Case discussed with on-call urology, . Who advises on admission which intervention planned for tomorrow. Patient NPO at midnight. Medical Decision Making - Medical Decision Making Was pt. sent in by a medical professional or institution (, PA, AIR BRAKES INSPECTOR, urgent care, hospital, or jail...) When possible be specific @ -No Did you speak to anyone other than the patient for history (EMS, parent, family, police, friend...)? What history was obtained from this source @ -Patient's daughter, at bedside, aiding in HPI and past medical history. Did you review nursing and triage notes (agree or disagree)? Why? @ -I reviewed and agree with nursing and triage notes Were old charts reviewed (outside hosp., previous admission, EMS record, old EKG, old radiological studies, urgent care reports/EKG's, jail records)? Report findings @ -No old charts were reviewed Differential Diagnosis (chest pain, altered mental status, abdominal pain women, abdominal pain men, vaginal bleeding, weakness, fever, dyspnea, syncope, headache, dizziness, GI bleed, back pain, seizure, CVA, palpatations, mental health, musculoskeletal)? @ -Differential Abdominal Pain Women:Appendicitis, Cholecystitis, diverticulosis, ischemic bowel, pancreatitis, hepatitis, UTI, gastroenteritis, AAA, incarcerated hernia, bowel obstruction, constipation, inflammatory bowel, hepatitis, peptic ulcer disease, splenic infarction, perforated viscus, vulvitis, ovarian torsion, PID, kidney stone, placenta abruption, this is not meant to be an all-inclusive list EKG interpreted by me (3pts min.). @ -As above X-rays interpreted by me (1pt min.). @ -None done CT interpreted by me (1pt min.). @ -CT abdomen pelvis significant for a left renal pelvis calculus measuring 1.8 cm x 1.0 cm. Mild left hydroureter. Mild prominence of right renal collecting system and hydroureter. No obstructing renal or ureteral stone. Bilateral nonobstructing renal stones. Diverticulosis without acute diverticulitis. U/S interpreted by me (1pt. min.). @ -None done What testing was considered but not performed or refused? (CT, X-rays, U/S, labs)? Why? @ -None What meds were considered but not given or refused? Why? @ -None Did you discuss the management of the patient with other professionals (professionals i.e. , PA, AIR BRAKES INSPECTOR, lab, RT, psych nurse, nephrology social worker, director of speech pathology, teacher, bsa officer, case liner)? Give summary @ -Yes, case discussed with expeditionary fighting vehicle crewman urology, Dr. Zimmer. He advised on admission with plan on intervention tomorrow. Was smoking cessation discussed for >3mins.? @ -No Was critical care preformed (if so, how long)? @ -No Were there social determinants of health that impacted care today? How? (Homelessness, low income, unemployed, alcoholism, drug addiction, transportation, low edu. Level, literacy, decrease access to med. care, skilled nursing, rehab)? @ -No Was there de-escalation of care discussed even if they declined (Discuss DNR or withdrawal of care, Hospice)? DNR status @ -No What co-morbidities impacted this encounter? (DM, HTN, Smoking, COPD, CAD, Cancer, CVA, ARF, Chemo, Hep., AIDS, mental health diagnosis, sleep apnea, morbid obesity)? @ -Hypertension, diabetes mellitus Was patient admitted / discharged? Hospital course, mention meds given and route, prescriptions, significant lab abnormalities, going to OR and other pertinent info. @ -Admitted. 69 year old female presenting to the ER for evaluation of bi lateral flank pain. Upon arrival patient tachycardic 108 vitals otherwise within settlements. This is believed to be due to her pain. Upon my evaluation, patient resting comfortably in exam room no signs of acute distress. There is bilateral CVA tenderness noted. Abdominal exam remarkable for left lower quadrant abdominal pain. Normal bowel sounds without rebound or guarding. There is also noted to be a erythematous rash consistent with cutaneous Aissatou under bilateral breasts and abdominal pannus, nystatin powder prescribed. Workup in the ER remarkable for WBC of 6.6, lactic 2.8 patient did receive IV fluid bolus and started on maintenance fluids. Hemoglobin 11.5. BUN 16, creatinine 1.09 GFR 53. Urinalysis is hemorrhagic with large blood, large leukocyte esterases and greater than 182 RBCs and WBCs. Urine is concerning of infection and will be sent for culture. CT abdomen pelvis showing a large left renal pelvis stone measuring 1.8 x 1.0 cm. Mild left hydronephrosis. Dilation of right renal collecting system no obstructing stones. Given large obstructing renal calculus with concerning urine of UTI case was discussed with on-call urology, , he advised on admission with plan on intervention tomorrow. Patient started on IV Rocephin, blood cultures obtained prior to antibiotic initiation. N.p.o. at midnight. Patient given symptomatic treatment in the ER with IV Zofran, Toradol and Dilaudid, with improvement. Patient agreeable for admission and admitted in stable condition for further evaluation and treatment. Patient and patient's daughter, at bedside, verbally expressed understanding agreement with care plan. Case discussed with ED attending, Dr. Kelly. Undiagnosed new problem with uncertain prognosis? @ -No Drug Therapy requiring intensive monitoring for toxicity (Heparin, Nitro, Insulin, Cardizem)? @ -No Were any procedures done? @ -No Diagnosis/symptom? @ -Renal pelvis calculus/ rule out UTI/cutaneous aissatou Acute, or Chronic, or Acute on Chronic? @ -Acute Uncomplicated (without systemic symptoms) or Complicated (systemic symptoms)? @ -Complicated Side effects of treatment? @ -No Exacerbation, Progression, or Severe Exacerbation? @ -No Poses a threat to life or bodily function? How? (Chest pain, [place], [place], pneumonia, PE, COPD, DKA, ARF, appy, cholecystitis, CVA, Diverticulitis, Homicidal, Suicidal, threat to staff... and all critical care pts) @ -Yes, can lead to sepsis and/or endorgan dysfunction. - Lab Data Result diagrams: 11/04/24 16:52 11/04/24 16:52 Lab Results 11/04/24 11/04/24 11/04/24 Range/Units 16:30 16:52 16:52 WBC 6.66 (4.50-10.00) 10*3/uL RBC 3.60 L (4.10-5.20) 10*6/uL Hgb 11.5 L (12.0-15.0) g/dL Hct 33.6 L (37.2-46.3) % MCV 93.3 (80.0-97.0) fL MCH 31.9 (27.0-32.0) pg MCHC 34.2 (32.0-37.0) g/dL Plt Count 122 L (140-440) 10*3/uL MPV 9.7 (9.5-12.2) fL Immature Gran % (Auto) 0.2 % Neutrophils % 76.1 % Lymphocytes % 12.0 % Monocytes % 8.3 % Eosinophils % 2.9 % Basophils % 0.5 % Immature Gran # 0.01 (0.00-0.04) 10*3/uL Neutrophils # 5.08 (1.80-7.70) 10*3/uL Lymphocytes # 0.80 L (0.90-5.00) 10*3/uL Monocytes # 0.55 (0.20-1.00) 10*3/uL Eosinophils # 0.19 (0.04-0.35) 10*3/uL Basophils # 0.03 (0.00-0.10) 10*3/uL Sodium 135 L (137-145) mmol/L Potassium 3.8 (3.5-5.1) mmol/L Chloride 103 (98-107) mmol/L Carbon Dioxide 24 (22-30) mmol/L Anion Gap 8 mmol/L BUN 16 (7-17) mg/dL Creatinine 1.09 H (0.52-1.04) mg/dL Est GFR (CKD-EPI)AfAm 61 (>60 ml/min/1.73 sqM) Est GFR (CKD-EPI)NonAf 53 (>60 ml/min/1.73 sqM) Glucose 233 H (74-99) mg/dL Plasma Lactic Acid Shemar (0.7-2.0) mmol/L Calcium 9.1 (8.4-10.2) mg/dL Total Bilirubin 1.0 (0.2-1.3) mg/dL AST 23 (14-36) U/L ALT 15 (4-34) U/L Alkaline Phosphatase 129 H (38-126) U/L Total Protein 6.6 (6.3-8.2) g/dL Albumin 3.3 L (3.5-5.0) g/dL Lipase 162 (23-300) U/L Urine Color Dark Yellow Urine Appearance Turbid H (Clear) Urine pH 6.5 (5.0-8.0) Ur Specific Jen[place] 1.019 (1.001-1.035) Urine Protein 2+ H (Negative) Urine Glucose (UA) 1+ H (Negative) Urine Ketones Negative (Negative) Urine Blood Large H (Negative) Urine Nitrite Negative (Negative) Urine Bilirubin Negative (Negative) Urine Urobilinogen <2.0 (<2.0) mg/dL Ur Leukocyte Esterase Large H (Negative) Urine RBC >182 H (0-5) /hpf Urine WBC >182 H (0-5) /hpf Urine WBC Clumps Many H (None) /hpf Ur Squamous Epith Cells 4 (0-4) /hpf /11/24 Range/Units 16:52 WBC (4.50-10.00) 10*3/uL RBC (4.10-5.20) 10*6/uL Hgb (12.0-15.0) g/dL Hct (37.2-46.3) % MCV (80.0-97.0) fL MCH (27.0-32.0) pg MCHC (32.0-37.0) g/dL Plt Count (140-440) 10*3/uL MPV (9.5-12.2) fL Immature Gran % (Auto) % Neutrophils % % Lymphocytes % % Monocytes % % Eosinophils % % Basophils % % Immature Gran # (0.00-0.04) 10*3/uL Neutrophils # (1.80-7.70) 10*3/uL Lymphocytes # (0.90-5.00) 10*3/uL Monocytes # (0.20-1.00) 10*3/uL Eosinophils # (0.04-0.35) 10*3/uL Basophils # (0.00-0.10) 10*3/uL Sodium (137-145) mmol/L Potassium (3.5-5.1) mmol/L Chloride (98-107) mmol/L Carbon Dioxide (22-30) mmol/L Anion Gap mmol/L BUN (7-17) mg/dL Creatinine (0.52-1.04) mg/dL Est GFR (CKD-EPI)AfAm (>60 ml/min/1.73 sqM) Est GFR (CKD-EPI)NonAf (>60 ml/min/1.73 sqM) Glucose (74-99) mg/dL Plasma Lactic Acid Shemar 2.8 H* (0.7-2.0) mmol/L Calcium (8.4-10.2) mg/dL Total Bilirubin (0.2-1.3) mg/dL AST (14-36) U/L ALT (4-34) U/L Alkaline Phosphatase (38-126) U/L Total Protein (6.3-8.2) g/dL Albumin (3.5-5.0) g/dL Lipase (23-300) U/L Urine Color Urine Appearance (Clear) Urine pH (5.0-8.0) Ur Specific [place] (1.001-1.035) Urine Protein (Negative) Urine Glucose (UA) (Negative) Urine Ketones (Negative) Urine Blood (Negative) Urine Nitrite (Negative) Urine Bilirubin (Negative) Urine Urobilinogen (<2.0) mg/dL Ur Leukocyte Esterase (Negative) Urine RBC (0-5) /hpf Urine WBC (0-5) /hpf Urine WBC Clumps (None) /hpf Ur Squamous Epith Cells (0-4) /hpf - EKG Data -: EKG Interpreted by Me EKG Comments: EKG taken at 16: 52 sinus rhythm with occasional PACs. No ST segment elevations or depressions. T wave inversion lead III. Ventricular rate 93, DC interval 146, QRS ration 94, QT/QTc 360/411. - Radiology Data Radiology results: report reviewed, image reviewed Disposition Clinical Impression: Cutaneous candidiasis, Kidney stone Disposition: ADMITTED IP TO THIS [facility] Condition: Stable Referrals: None,Stated [REFERRING] - 1-2 days Time of Disposition: 18:41
[2024-11-04 17:06] LABS: Basophils # (A) 0.03 10*3/uL (0.00-0.10); Basophils % (A) 0.5 %; Eosinophils # (A) 0.19 10*3/uL (0.04-0.35); Eosinophils % (A) 2.9 %; HCT 33.6 % (37.2-46.3); HGB 11.5 g/dL (12.0-15.0); MCH 31.9 pg (27.0-32.0); MCHC 34.2 g/dL (32.0-37.0); MCV 93.3 fL (80.0-97.0); Mean Platelet Volume 9.7 fL (9.5-12.2); Monocytes # (A) 0.55 10*3/uL (0.20-1.00); Monocytes % (A) 8.3 %; Neutrophils # (A) 5.08 10*3/uL (1.80-7.70); Neutrophils % (A) 76.1 %; Platelet Count 122 10*3/uL (140-440); RDW 13.3 % (11.5-14.5); WBC 6.66 10*3/uL (4.50-10.00)
[2024-11-04 17:11] LABS: Appearance,Urine Turbid (Clear); Bilirubin,Urine Negative (Negative); Blood,Urine Large (Negative); Glucose,Urine (UA) 1+ (Negative); Ketones,Urine Negative (Negative); Leukocyte Esterase,Urine Large (Negative); Nitrite,Urine Negative (Negative); PH, Urine 6.5 (5.0-8.0); Protein,Urine 2+ (Negative); RBC,Urine >182 /hpf (0-5); Squamous Epithelial Cell,Urine 4 /hpf (0-4); Urobilinogen,Urine <2.0 mg/dL (<2.0); WBC,Urine >182 /hpf (0-5)
[2024-11-04 17:12] LABS: Specific Gravity,Urine 1.019 (1.001-1.035)
[2024-11-04 17:13] LABS: Color,Urine Dark Yellow
[2024-11-04] MEDS: HYDROmorphone 0.5 MG/0.5 ML SYRINGE IVP STA (17:13)
[2024-11-04] MEDS: ONDANSETRON 4 MG/2 ML VIAL IVP STA (17:14)
[2024-11-04] MEDS: KETOROLAC 15 MG/ML 1 ML VIAL IVP STA (17:15)
[2024-11-04] MEDS: SODIUM CHLORIDE 0.9% 1,000 ML IV ONE (17:16)
[2024-11-04 17:17] LABS: ALT 15 U/L (4-34); AST 23 U/L (14-36); African American GFR (CKD) 61 (>60 ml/min/1.73 sqM); Albumin 3.3 g/dL (3.5-5.0); Alkaline Phosphatase 129 U/L (38-126); Anion Gap 8 mmol/L; Blood Urea Nitrogen 16 mg/dL (7-17); Calcium 9.1 mg/dL (8.4-10.2); Carbon Dioxide 24 mmol/L (22-30); Chloride 103 mmol/L (98-107); Glucose 233 mg/dL (74-99); Lipase 162 U/L (23-300); Non-African American GFR(CKD) 53 (>60 ml/min/1.73 sqM); Potassium 3.8 mmol/L (3.5-5.1); Sodium 135 mmol/L (137-145); Total Protein 6.6 g/dL (6.3-8.2)
--- NOTE | 2024-11-04 17:50 | CT ---
EXAMINATION TYPE: CT abdomen pelvis wo con DATE OF EXAM: 11/04/2024 5:36 PM COMPARISON: None. CLINICAL INDICATION: Female, 69 years old with history of marika flank pain hx stones, marika flank pain hx stones TECHNIQUE: Axial images were obtained from above the diaphragm to the pubic rami in the axial plane a t 5 mm thick sections. Reconstructed images are reviewed on the computer in the coronal plane. CONTRAST: mL of . Study performed without Oral Contrast DLP: 1133.4 mGycm, Automated exposure control for dose reduction was used. FINDINGS: Limited CT sections are obtained the lung bases. The lung bases are clear. LAP-BAND is present CT ABDOMEN: Liver: Normal Spleen: Normal Pancreas: Normal Adrenal glands: The adrenal glands are normal. Gallbladder: Normal Kidneys: No masses are evident. No hydronephrosis is present. No cysts are present. There is a 0.5 cm nonobstructing renal stone upper pole right kidney. There is a 0.4 cm mid left kidney stone witho ut obstruction. Mild right hydroureter is present. No obstructing renal or ureteral stone is on the r ight. There is a large calcification in the left renal pelvis measuring 1.8 x 1.0 cm. Mild left hydro ureter in the proximal portion. This has normal caliber at the pelvic inlet. There is a nonobstructin g renal stone inferior pole left kidney. Aorta: Vascular calcification is within the aorta. Inferior vena cava: Normal. CT PELVIS: Loops of bowel within the abdomen and pelvis are normal. Diverticular changes are within the sigmoid colon There are loops of bowel which are incompletely distended or lack oral contrast limiting the ir evaluation. Appendix: Not identified. No dilated tubular structure or inflammatory change is evident. Urinary bladder: Normal. Genitourinary structures: Uterus and adnexa are normal Osseous structures: No suspicious lytic or sclerotic lesions. IMPRESSION: 1. Large left renal pelvic stone with mild left hydronephrosis. 2. There is mild prominence of the right renal collecting system and hydroureter. No obstructing sravan l or ureteral stone is evident however. Consider recent passage of a stone. 3. Bilateral nonobstructing renal stones. 4. Diverticulosis without acute diverticulitis [facility], Workstation: [facility], 11/04/2024 5:48 PM
[2024-11-04] MEDS ORDERED: ACETAMINOPHEN TAB 325 MG TAB PO PRN (18:15)
[2024-11-04] MEDS ORDERED: ONDANSETRON 4 MG/2 ML VIAL IVP PRN (18:15)
[2024-11-04] MEDS ORDERED: NALOXONE 0.4 MG/ML 1 ML VIAL IV PRN (18:15)
[2024-11-04] MEDS ORDERED: HYDROmorphone 1 MG/ML 1 ML SYRINGE IVP PRN (18:15)
[2024-11-04] MEDS: SODIUM CHLORIDE 0.9% 1,000 ML IV SCH (19:22)
[2024-11-04] MEDS: cefTRIAXone 2 GM in DEXTROSE 5% IN WATER 50 ML IVPB SCH (19:22)
[2024-11-04] MEDS: NYSTATIN 100,000 UNIT/GM POWD 15 GM TOPICAL SCH (22:13)
[2024-11-04] MEDS: KETOROLAC 15 MG/ML 1 ML VIAL IVP PRN (23:00)
[2024-11-05 07:34] LABS: Glucose,Whole Blood 184 mg/dL (70-110)
[2024-11-05 08:21] LABS: Glucose,Whole Blood 190 mg/dL (70-110)
[2024-11-05] MEDS: DEXAMETHASONE SOD PHOSPHATE 4 MG/ML 1 ML VIAL IVP STA (08:21)
[2024-11-05] MEDS: LACTATED RINGERS 1,000 ML IV ONE (08:27)
--- NOTE | 2024-11-05 09:24 | P.GSHP ---
History of Present Illness H&P Date: 11/05/24 Chief Complaint: Left renal stone This is a 69-year-old female with history of recurrent kidney stones. Presented to the hospital with bilateral flank pain. Pain is associate with nausea vomiting. Denies any gross hematuria or dysuria. She she indicated she passed a small stone after that the right flank pain has resolved but she has been having persistent left flank pain. Underwent a CT abdomen and pelvis that showed a mild hydroureter along the right side, and a 1.8 cm left-sided renal pelvic stone with hydronephrosis. UA is concerning for UTI. She has required ureteroscopy and holmium laser in the past for her kidney stones., She followed up with a urologist at [place] unsure who it was. This morning on evaluation she is having persistent left flank pain - Constitutional Constitutional: Denies chills, Denies fever - EENT Ears, nose, mouth and throat: Denies headache, Denies sore throat - Cardiovascular Cardiovascular: Denies chest pain, Denies shortness of breath - Respiratory Respiratory: Denies cough, Denies 7 - Gastrointestinal Gastrointestinal: Reports abdominal pain, Reports nausea, Reports vomiting - Genitourinary (Female) Genitourinary: Reports flank pain, Denies dysuria, Denies hematuria - Integumentary Integumentary: Denies pruritus, Denies rash - Neurological Neurological: Denies numbness, Denies weakness Past Medical History Past Medical History: Diabetes Mellitus, Hypertension Additional Past Medical History / Comment(s): hx. heart murmur, urinary fr equency, occasional incontinence, kidney stones, no longer needs BP med., History of Any Multi-Drug Resistant Organisms: None Reported Past Surgical History: Bariatric Surgery, Cholecystectomy, Orthopedic Surgery, Tubal Ligation Additional Past Surgical History / Comment(s): left knee, r knee Past Anesthesia/Blood Transfusion Reactions: No Reported Reaction Additional Past Anesthesia/Blood Transfusion Reaction / Comment(s): pt. adopted, unknown family hx. Past Psychological History: No Psychological Hx Reported Smoking Status: Former smoker Past Alcohol Use History: None Reported Additional Past Alcohol Use History / Comment(s): quit smoking 40 yrs. ago, smoked 10 yrs., 1/2ppd Past Drug Use History: None Reported - Past Family History Daughter(s) Family Medical History: No Reported History Medications and Allergies Home Medications Medication Instructions Recorded Confirmed Type metFORMIN HCL [Glucophage] 500 mg PO BID 06/03/16 11/04/24 History Rosuvastatin Calcium 5 mg PO HS 08/29/22 11/04/24 History Semaglutide [Ozempic] 1 mg SQ WE 08/29/22 11/04/24 History PARoxetine HCL [Paxil] 40 mg PO HS 08/20/24 11/04/24 History Aspirin EC [Ecotrin Low Dose] 81 mg PO DAILY 11/04/24 11/04/24 History Cholecalciferol (Vitamin D3) 50 mcg PO DAILY 11/04/24 11/04/24 History [Vitamin D3 (50 Mcg = 2000 Iu)] Ciprofloxacin HCl [Cipro] 500 mg PO Q12HR 11/04/24 11/04/24 History Cranberry Fruit Extract [Cranberry] 500 mg PO DAILY 11/04/24 11/04/24 History Cyanocobalamin (Vitamin B-12) 1,000 mcg PO DAILY 11/04/24 11/04/24 History [Vitamin B-12] HYDROcodone/APAP 5-325MG [[place] 1 tab PO Q6HR PRN 11/04/24 11/04/24 History 5-325] Omeprazole [PriLOSEC] 40 mg PO DAILY PRN 11/04/24 11/04/24 History Ondansetron Odt [Zofran Odt] 4 mg PO Q8HR PRN 11/04/24 11/04/24 History Tamsulosin [Flomax] 0.4 mg PO DAILY 11/04/24 11/04/24 History Allergies Allergy/AdvReac Type Severity Reaction Status Date / Time sulfamethoxazole Allergy Rash/Hives Verified 11/05/24 08:00 [From Bactrim] trimethoprim [From Bactrim] Allergy Rash/Hives Verified 11/05/24 08:00 adhesive AdvReac if left on Verified 11/05/24 08:00 too long irritates skin Surgical - Exam Vital Signs Temp Pulse Resp BP Pulse Ox 98.2 F 108 H 17 111/49 98 11/04/24 16:13 11/04/24 16:13 11/04/24 16:13 11/04/24 16:13 11/04/24 16:13 - General no distress, moderate pain - Eyes normal ocular movement, no pale - ENT normal nares, normal mucosa - Respiratory normal expansion, normal respiratory effort - Abdomen Abdomen: soft, tender (Left flank), no distended - Psychiatric oriented to time, oriented to person, oriented to place Results - Labs 11/04/24 16:52 11/04/24 16:52 Abnormal Lab Results - Last 24 Hours (Table) 11/04/24 11/04/24 11/04/24 Range/Units 16:30 16:52 16:52 RBC 3.60 L (4.10-5.20) 10*6/uL Hgb 11.5 L (12.0-15.0) g/dL Hct 33.6 L (37.2-46.3) % Plt Count 122 L (140-440) 10*3/uL Lymphocytes # 0.80 L (0.90-5.00) 10*3/uL Sodium 135 L (137-145) mmol/L Creatinine 1.09 H (0.52-1.04) mg/dL Glucose 233 H (74-99) mg/dL POC Glucose (mg/dL) (70-110) mg/dL Plasma Lactic Acid Shemar (0.7-2.0) mmol/L Alkaline Phosphatase 129 H (38-126) U/L Albumin 3.3 L (3.5-5.0) g/dL Urine Appearance Turbid H (Clear) Urine Protein 2+ H (Negative) Urine Glucose (UA) 1+ H (Negative) Urine Blood Large H (Negative) Ur Leukocyte Esterase Large H (Negative) Urine RBC >182 H (0-5) /hpf Urine WBC >182 H (0-5) /hpf Urine WBC Clumps Many H (None) /hpf 11/04/24 11/05/24 11/05/24 Range/Units 16:52 07:33 08:15 RBC (4.10-5.20) 10*6/uL Hgb (12.0-15.0) g/dL Hct (37.2-46.3) % Plt Count (140-440) 10*3/uL Lymphocytes # (0.90-5.00) 10*3/uL Sodium (137-145) mmol/L Creatinine (0.52-1.04) mg/dL Glucose (74-99) mg/dL POC Glucose (mg/dL) 184 H 190 H (70-110) mg/dL Plasma Lactic Acid Shemar 2.8 H* (0.7-2.0) mmol/L Alkaline Phosphatase (38-126) U/L Albumin (3.5-5.0) g/dL Urine Appearance (Clear) Urine Protein (Negative) Urine Glucose (UA) (Negative) Urine Blood (Negative) Ur Leukocyte Esterase (Negative) Urine RBC (0-5) /hpf Urine WBC (0-5) /hpf Urine WBC Clumps (None) /hpf Diabetes panel 11/04/24 Range/Units 16:52 Sodium 135 L (137-145) mmol/L Potassium 3.8 (3.5-5.1) mmol/L Chloride 103 (98-107) mmol/L Carbon Dioxide 24 (22-30) mmol/L BUN 16 (7-17) mg/dL Creatinine 1.09 H (0.52-1.04) mg/dL Glucose 233 H (74-99) mg/dL Calcium 9.1 (8.4-10.2) mg/dL AST 23 (14-36) U/L ALT 15 (4-34) U/L Alkaline Phosphatase 129 H (38-126) U/L Total Protein 6.6 (6.3-8.2) g/dL Albumin 3.3 L (3.5-5.0) g/dL Calcium panel 11/04/24 Range/Units 16:52 Calcium 9.1 (8.4-10.2) mg/dL Albumin 3.3 L (3.5-5.0) g/dL Pituitary panel 11/04/24 Range/Units 16:52 Sodium 135 L (137-145) mmol/L Potassium 3.8 (3.5-5.1) mmol/L Chloride 103 (98-107) mmol/L Carbon Dioxide 24 (22-30) mmol/L BUN 16 (7-17) mg/dL Creatinine 1.09 H (0.52-1.04) mg/dL Glucose 233 H (74-99) mg/dL Calcium 9.1 (8.4-10.2) mg/dL Adrenal panel 11/04/24 Range/Units 16:52 Sodium 135 L (137-145) mmol/L Potassium 3.8 (3.5-5.1) mmol/L Chloride 103 (98-107) mmol/L Carbon Dioxide 24 (22-30) mmol/L BUN 16 (7-17) mg/dL Creatinine 1.09 H (0.52-1.04) mg/dL Glucose 233 H (74-99) mg/dL Calcium 9.1 (8.4-10.2) mg/dL Total Bilirubin 1.0 (0.2-1.3) mg/dL AST 23 (14-36) U/L ALT 15 (4-34) U/L Alkaline Phosphatase 129 H (38-126) U/L Total Protein 6.6 (6.3-8.2) g/dL Albumin 3.3 L (3.5-5.0) g/dL Assessment and Plan Assessment: 69-year-old female with 1.8 cm left-sided renal pelvic stone. She is symptomatic from her stone, UA concerning for UTI. Discussed with her the next up would be to proceed with a stent insertion. Discussed she will eventually require ureteroscopy with holmium laser to address her stone, discussed given the size of the stone potential she might need a staged procedure. The right hydroureter is most likely secondary to the recently passed stone. Keep n.p.o. OR for left-sided stent insertion
[2024-11-05] MEDS: SODIUM CHLORIDE 0.9% 50 ML with ceFAZolin 2,000 MG IV ONE (09:28)
[2024-11-05] MEDS ORDERED: PROPOFOL 10 MG/ML 20 ML VIAL IV ONE (09:28)
[2024-11-05] MEDS ORDERED: fentaNYL (PF) 50 MCG/ML 2 ML AMP ONE (09:28)
[2024-11-05] MEDS ORDERED: MIDAZOLAM 2 MG/2 ML VIAL ONE (09:28)
--- NOTE | 2024-11-05 10:00 | P.OP ---
Date of Procedure: 11/05/24 Preoperative Diagnosis: Left renal stone Postoperative Diagnosis: Same Procedure(s) Performed: Cystoscopy and a left-sided stent insertion Implants: 6 Bengali by 22 cm stents in the left ureter Anesthesia: MAC Surgeon: Mir Zimmer Estimated Blood Loss (ml): 1 Pathology: none sent Condition: stable Disposition: PACU Indications for Procedure: 69-year-old female with 1.8 cm left-sided renal pelvic stone. She is symptomatic from her stone, UA concerning for UTI. Discussed with her the next up would be to proceed with a stent insertion. Discussed she will eventually require ureteroscopy with holmium laser to address her stone, discussed given the size of the stone potential she might need a staged procedure. The right hydroureter is most likely secondary to the recently passed stone. Operative Findings: Large radiopaque stone, successful stent placement Description of Procedure: Patient brought to the operating room, general sedation was induced. She was prepped and draped in sterile fashion placed in dorsolithotomy position. Cystoscopy through the 22 Bengali sheath was inserted per urethra, cystoscopy was performed which showed evidence of diffuse cystitis but no abnormality within the bladder. The left ureteral orifice was identified and intubated with a sensor wire, the wire was advanced under fluoroscopy into the kidney past the stone which was sitting in the renal pelvis. Next a ureteral stent was passed over the wire, the proximal curl was realized on fluoroscopy and the distal curl visualized using cystoscope. Cloudy urine drained from the collecting system. Patient was awakened from anesthesia and taken to recovery in stable condition
--- NOTE | 2024-11-05 10:05 | FL ---
EXAMINATION TYPE: FL guidance operating room Intraoperative/procedural fluoroscopic services were pro vided. CLINICAL INDICATION:Female, 69 years old with history of CYSTO IN OR LEFT STONE; , [facility] FINDINGS: Fluoroscopic images for left ureteral stent placement. Large stone redemonstrated within the left vani al pelvis. Gastric lap band device identified. No radiographic evidence for complication. Total fluoroscopy time is 7.6 seconds. DAP: [id number] mGym2 Please see the operative/procedural note for further details. [facility], , 11/05/2024 10:03 AM
[2024-11-05 10:13] VITALS: RESP 16
[2024-11-05] MEDS ORDERED: PANTOPRAZOLE 40 MG TABLET PO PRN (11:33)
[2024-11-05] MEDS ORDERED: HYDROcodone/APAP 5-325MG 1 EACH TAB PO PRN (11:33)
[2024-11-05] MEDS ORDERED: ONDANSETRON ODT 4 MG TAB PO PRN (11:33)
[2024-11-05 12:14] LABS: Glucose,Whole Blood 243 mg/dL (70-110)
[2024-11-05 16:58] LABS: Glucose,Whole Blood 271 mg/dL (70-110)
[2024-11-05] MEDS: ATORVASTATIN 10 MG TAB PO SCH (20:04)
[2024-11-05] MEDS: PARoxetine 20 MG TAB PO SCH (20:04)
[2024-11-05] MEDS: metFORMIN 500 MG TAB PO SCH (20:04)
[2024-11-06 07:09] LABS: Glucose,Whole Blood 159 mg/dL (70-110)
[2024-11-06] MEDS: ASPIRIN 81 MG PO SCH (08:36)
[2024-11-06] MEDS: TAMSULOSIN 0.4 MG CAP.ER.24H PO SCH (08:36)
[2024-11-06] MEDS: CIPROFLOXACIN HCL 500 MG TAB PO STA (09:17)
--- NOTE | 2024-11-06 11:48 | P.DS ---
Providers Date of admission: 11/04/24 18:21 Attending physician: Mir Zimmer MD Primary care physician: Darlene Gupta MD Hospital Course: This is a 69 yo female with hx of left renal stone. Admitted to the hospital for intractable pain. She underwent cystoscopy with left stent insertion on November 05. Please see op note dated November 05 for surgery details. Patient was discharged home on November 06 with Cipro. She is set up for left-sided PCNL to address her st one on November 22. At time of discharge she was tolerating a diet, ambulating, pain is controlled Patient Condition at Discharge: Stable Plan - Discharge Summary Discharge Rx Participant: No New Discharge Prescriptions: New Ciprofloxacin HCl [Cipro] 500 mg PO Q12HR 7 Days #14 cap No Action metFORMIN HCL [Glucophage] 500 mg PO BID Semaglutide [Ozempic] 1 mg SQ WE Ondansetron Odt [Zofran Odt] 4 mg PO Q8HR PRN PRN Reason: Nausea And Vomiting Tamsulosin [Flomax] 0.4 mg PO DAILY Ciprofloxacin HCl [Cipro] 500 mg PO Q12HR Rosuvastatin Calcium 5 mg PO HS PARoxetine HCL [Paxil] 40 mg PO HS Cranberry Fruit Extract [Cranberry] 500 mg PO DAILY HYDROcodone/APAP 5-325MG [[place] 5-325] 1 tab PO Q6HR PRN PRN Reason: Pain Omeprazole [PriLOSEC] 40 mg PO DAILY PRN PRN Reason: Gi Upset Cyanocobalamin (Vitamin B-12) [Vitamin B-12] 1,000 mcg PO DAILY Cholecalciferol (Vitamin D3) [Vitamin D3 (50 Mcg = 2000 Iu)] 50 mcg PO DAILY Aspirin EC [Ecotrin Low Dose] 81 mg PO DAILY Discharge Medication List metFORMIN HCL [Glucophage] 500 mg PO BID 06/03/16 [History] Rosuvastatin Calcium 5 mg PO HS 08/29/22 [History] Semaglutide [Ozempic] 1 mg SQ WE 08/29/22 [History] PARoxetine HCL [Paxil] 40 mg PO HS 08/20/24 [History] Aspirin EC [Ecotrin Low Dose] 81 mg PO DAILY 11/04/24 [History] Cholecalciferol (Vitamin D3) [Vitamin D3 (50 Mcg = 2000 Iu)] 50 mcg PO DAILY 11/04/24 [History] Ciprofloxacin HCl [Cipro] 500 mg PO Q12HR 11/04/24 [History] Cranberry Fruit Extract [Cranberry] 500 mg PO DAILY 11/04/24 [History] Cyanocobalamin (Vitamin B-12) [Vitamin B-12] 1,000 mcg PO DAILY 11/04/24 [History] HYDROcodone/APAP 5-325MG [[place] 5-325] 1 tab PO Q6HR PRN 11/04/24 [History] Omeprazole [PriLOSEC] 40 mg PO DAILY PRN 11/04/24 [History] Ondansetron Odt [Zofran Odt] 4 mg PO Q8HR PRN 11/04/24 [History] Tamsulosin [Flomax] 0.4 mg PO DAILY 11/04/24 [History] Ciprofloxacin HCl [Cipro] 500 mg PO Q12HR 7 Days #14 cap 11/06/24 [Rx] Follow up Appointment(s)/Referral(s): [facility], [NON-STAFF] - 1 Week None,Stated [REFERRING] - 1-2 days
[2024-11-06 12:18] LABS: Glucose,Whole Blood 185 mg/dL (70-110)
[2024-11-06 12:35] VITALS: BP 104/61; PULSE 86; TEMP 97.9
== END 2024-11-06 13:26 | disposition home or self-care (01) | DRG 661 ==
LOC: SUPCPDRO 16:06 → EC 16:06 → 5NMEDONC 18:21
PROVIDERS: ADMIT Urology; ATTEND Urology
PROC: 0T778DZ Dilation of Left Ureter with Intraluminal Device, Via Natural or Artificial Opening Endoscopic (ICD-10-PCS; principal; 2024-11-05 16:30)
DX: N13.6 Pyonephrosis (principal); B95.2 Enterococcus as the cause of diseases classified elsewhere; N30.80 Other cystitis without hematuria; B37.2 Candidiasis of skin and nail; E11.9 Type 2 diabetes mellitus without complications; I10 Essential (primary) hypertension; Z79.82 Long term (current) use of aspirin; Z87.891 Personal history of nicotine dependence; Z79.84 Long term (current) use of oral hypoglycemic drugs; Z79.899 Other long term (current) drug therapy; Z87.442 Personal history of urinary calculi; Z96.659 Presence of unspecified artificial knee joint; Z88.2 Allergy status to sulfonamides; Z88.1 Allergy status to other antibiotic agents; Z91.048 Other nonmedicinal substance allergy status; Z98.84 Bariatric surgery status; Z90.49 Acquired absence of other specified parts of digestive tract; Z98.51 Tubal ligation status
CPT/HCPCS: 36415; 74176; 80053; 81001; 83605; 83690; 85025; 87040; 87077; 87086; 87186; 93005; 96361; 96365; 96366; 96375; 99285